=== PATIENT | male | born 1980 | race Caucasian/White ===

== ENCOUNTER 2021-02-11 04:14 | Emergency (ER) | payer OTHER, MEDICAID ==
[~2021-02-11] VITALS: Ht 190.5 cm; Wt 104.3 kg
[2021-02-11 04:18] VITALS: BP 145/89
--- NOTE | 2021-02-11 04:20 | NUR ---
PT W/C ASSISTED TO BED 12
[2021-02-11] MEDS ORDERED: ONDANSETRON 4 MG/2 ML VIAL IVP ONE (04:55)
[2021-02-11] MEDS ORDERED: MORPHINE SULFATE 4 MG/ML SYR IVP ONE (04:55)
--- NOTE | 2021-02-11 04:55 | NUR ---
PATIENT BIB SELF FOR C/O 06/08 ABDOMINAL PAIN AFTER EATING SPICY FOOD X 5 HOURS AGO. A & O X4. PATIENT REPORTS "THIS KEEPS HAPPENING AFTER I EAT SPICY FOOD." PATIENT REPORTS N/V AND DIARRHEA X 1 TIME. BOWEL SOUNDS ACTIVE X4. SKIN IS WARM, DRY, AND INTACT. BED IS LOCKED AND IN LOWEST POSITION, BED RAIL X 1, HOB ELEVATED, PATIENT POSITIONED FOR COMFORT. SEE COMPLETE ASSESSMENT FOR FURTHER DETAILS. MED HX: METASTATIC MELANOMA, HERNIA ALLERGIES: DENIES
[2021-02-11] MEDS ORDERED: ONDANSETRON 4 MG ODT ONE (05:07)
[2021-02-11] MEDS ORDERED: ONDANSETRON 4 MG ODT PO ONE (05:25)
[2021-02-11 05:29] LABS: BASOPHILS # (AUTO) 0.1 K/uL (0.00-0.22); EOSINOPHILS # (AUTO) 0.1 K/uL (0-0.4); EOSINOPHILS % (AUTO) 0.4 % (0.0-4.0); HEMATOCRIT 44.7 % (36-52); HEMOGLOBIN 15.3 g/dL (12.0-18.0); LYMPHOCYTES # (AUTO) 1.5 K/uL (2.0-11.5); LYMPHOCYTES % (AUTO) 11.1 % (20.5-51.1); MEAN CORPUSCULAR HEMOGLOBIN 30 pg (27-31); MEAN CORPUSCULAR HGB CONC 34 g/dL (33-37); MEAN CORPUSCULAR VOLUME 88.2 fL (80-94); MONOCYTES # (AUTO) 0.7 K/uL (0.8-1.0); MONOCYTES % (AUTO) 5.3 % (1.7-9.3); NEUTROPHILS # (AUTO) 11.2 K/uL (1.8-7.7); NEUTROPHILS % (AUTO) 82.2 % (42.2-75.2); PLATELET COUNT (AUTO) 265 K/uL (140-450); RED BLOOD CELL COUNT(AUTO) 5.07 MIL/uL (4.20-6.10); RED CELL DISTRIBUTION WIDTH 13.7 % (11.6-13.7); WHITE BLOOD COUNT (AUTO) 13.6 K/uL (4.8-10.8)
[2021-02-11] MEDS ORDERED: KETOROLAC 30 MG/ML VIAL IVP ONE ×2 (05:35)
[2021-02-11] MEDS ORDERED: DICYCLOMINE HCL LIQUID 20 MG, ALUMINUM HYD/MAG/SIMETHICONE 30 ML, LIDOCAINE VISCOUS 2% ... PO ONE ×3 (05:35)
[2021-02-11] MEDS ORDERED: LIDOCAINE 2% 100 MG/5 ML SYR IVP ONE (05:40)
[2021-02-11 05:42] LABS: ALBUMIN 4.4 g/dL (3.4-5.0); CREATININE 1.1 mg/dL (0.6-1.3); POTASSIUM 3.8 mmol/L (3.5-5.1); TOTAL BILIRUBIN 0.4 mg/dL (0.0-1.0)
[2021-02-11] MEDS ORDERED: DICYCLOMINE HCL LIQUID 10 MG/5 ML UDC ONE (05:46)
[2021-02-11] MEDS ORDERED: LIDOCAINE VISCOUS 2% 20 ML UDC ONE (05:48)
[2021-02-11] MEDS ORDERED: ALUMINUM HYD/MAG/SIMETHICONE 30 ML UDC ONE (05:48)
--- NOTE | 2021-02-11 05:50 | NUR ---
PATIENT TAKEN TO CT.
[2021-02-11 05:56] LABS: ANION GAP 12.9 (8-16); CARBON DIOXIDE 27.9 mmol/L (21-32)
--- NOTE | 2021-02-11 05:56 | NUR ---
PATIENT RETURNED FROM CT VIA [facility].
[2021-02-11] MEDS ORDERED: METOCLOPRAMIDE 10 MG/2 ML INJ VIAL IVP ONE (06:10)
[2021-02-11] MEDS ORDERED: diphenhydrAMINE 50 MG/ML VIAL IVP ONE (06:10)
--- NOTE | 2021-02-11 06:15 | NUR ---
PATIENT NOTED WITH VOMITING, ERMD MADE AWARE, NEW ORDERS PLACED.
[2021-02-11 06:27] LABS: BILIRUBIN,URINE NEGATIVE (NEGATIVE); BLOOD, URINE NEGATIVE (NEGATIVE); COLOR,URINE YELLOW (YELLOW); LEUKOCYTE ESTERASE ,URINE NEGATIVE (NEGATIVE); NITRITE, URINE NEGATIVE (NEGATIVE); UGLUCOSE NEGATIVE (NEGATIVE)
[2021-02-11 06:31] LABS: APPEARANCE,URINE SLIGHTLY HAZY (CLEAR)
[2021-02-11 06:32] LABS: RBC,URINE 0-5 /HPF (0-5); WBC,URINE 0-5 /HPF (0-5)
[2021-02-11 06:50] LABS: CANNABINOID, URINE POSITIVE ng/mL (NEG <=50)
[2021-02-11 06:51] LABS: BARBITURATE, URINE NEGATIVE ng/ml (NEG <=200); BENZODIAZEPINE, URINE NEGATIVE ng/mL (NEG <=200); COCAINE, URINE NEGATIVE ng/mL (NEG <=300); OPIATE, URINE POSITIVE ng/mL (NEG <=2000); PHENCYCLIDINE SCREEN,URINE NEGATIVE ng/mL (NEG <=25)
--- NOTE | 2021-02-11 06:57 | NUR ---
Patient appears to be resting comfortably in bed. Vital Signs within normal limits. Respirations even and unlabored. PATIENT DENIES PAIN AT THIS TIME.
[2021-02-11] MEDS ORDERED: BEN10 PO (07:15)
[2021-02-11] MEDS ORDERED: ONDA4ODT2 PO (07:15)
--- NOTE | 2021-02-11 07:19 | NUR ---
Report received from KATHY Sotelo; care assumed.
--- NOTE | 2021-02-11 07:22 | NUR ---
REPORT GIVEN TO KATHY CHEN FOR CHANGE OF SHIFT REPORT.
[2021-02-11] MEDS ORDERED: HYDROcodone/APAP 5/325 MG 1 TAB TAB PO ONE (07:40)
[2021-02-11 07:53] VITALS: BP 116/92
--- NOTE | 2021-02-11 07:54 | NUR ---
Patient discharged with v/s stable. Written and verbal after care instructions given and explained. Patient alert, oriented and verbalized understanding of instructions. Ambulatory with steady gait. All questions addressed prior to discharge. ID band removed. Patient advised to follow up with PMD. Rx of Ondansetron 4mg oral tab every 6-8 hours PRN; Bentyl 10mg oral cap TID PRN abdominal pain given. Patient educated on indication of medication including possible reaction and side effects. Opportunity to ask questions provided and answered.
== END 2021-02-11 07:27 | disposition home or self-care (01) ==
LOC: MED 04:14
DX: R10.9 Unspecified abdominal pain (principal); R11.2 Nausea with vomiting, unspecified; R19.7 Diarrhea, unspecified; Z79.899 Other long term (current) drug therapy
CPT/HCPCS: 36415; 74176; 80053; 80305; 81001; 83690; 85025; 96374; 96375; 99284; J1200; J1885; J2270; J2405; J2765; Q0162; J2001